=== PATIENT | male | born 1965 ===

== ENCOUNTER → 2020-05-08 08:47 | Outpatient (BNVA) | payer OTHER, SELFPAY | PROVIDERS: PCP Internal Medicine; Visit Provider Internal Medicine | DX: M96.1 Postlaminectomy syndrome, not elsewhere classified (principal) | CPT/HCPCS: 99214 ==

== ENCOUNTER → 2020-05-22 08:32 | Outpatient (BNVA) | payer OTHER, SELFPAY | PROVIDERS: PCP Internal Medicine; Visit Provider Internal Medicine | DX: M96.1 Postlaminectomy syndrome, not elsewhere classified (principal) | CPT/HCPCS: 99213 ==

== ENCOUNTER 2024-07-03 08:47 | Outpatient (AMB) | payer BC, SELFPAY ==
--- NOTE | 2024-07-03 08:51 | MHC.OFFVIS ---
Vital Signs 07/03/24 08:54 Height 5 ft 7 in Weight 234 lb BMI 36.6 BP 160/98 H Blood Pressure Location Lt brachial Position Sitting Respiration 17 Pulse 83 Pulse Source Pulse Oximeter Pulse Oximetry (%) 97 Oxygen Delivery Method Room Air Intake Visit Reasons: Lumbar disc disease Allergies No Known Allergies Allergy (Verified 07/03/24 08:56) Medication List - Last Reconciled 07/03/24 by Suellen Reed LPN aspirin (Adult Aspirin Regimen) 81 mg PO DAILY atorvastatin 80 mg PO DAILY lisinopril 20 mg PO DAILY metoprolol succinate ER mg PO nitroglycerin mg sublingual HPI Comments Details: Vicente is very pleasant 59 years old gentleman who presents in my office with complains on pain in the lower back with radiation into the stabbing sensation into the left lower extremity. He reports his pain today 03/07. He reports that his pain started 5 years ago after work accident where he tried to lift 250 lb device. He reports that because of his pain he can not sleep normally, can not do activities of daily living, he can take care of himself. He can not function normally. He is disabled individual. Cold application and weather changes aggravate his pain. Warm compresses make his pain better. In terms of tissue damage he reports his pain as stabbing, lancinating, sharp, cutting, lacerating, hot burning, scalding, searing, tight, tearing sensation. He had MRI which was performed at [facility]. He had physical therapy 2 years ago with no help. He had chiropractic manipulations also 2 years ago with aggravation of the pain. Sagar tried massage therapy. Warm compresses make his pain better. He had an MRI done at [facility] 2 years ago. Back in [facility] he received L5-S1 bilateral facet joint injections. He reported today that he never was offered spinal cord stimulator. He states that he would Sagar accept some like that. 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 He also had back surgery, he had 2 stents in the heart, and a foot surgery. He smokes half a pack of cigarettes per day he drinks alcohol 1 shot twice a week he drinks 2 cups of coffee a day he tried gummies THC approximately 10 months ago. He denied help from THC. Review of Systems Const All systems reviewed & are unremarkable except as noted in HPI and below ENT Reports Normal hearing present Neuro Reports Normal hearing present, Denies Abnormal speech present, Denies confusion and Denies Sensory deficit (Neuro) Psych Denies confusion Physical Exam Vital Signs: Last Vital Signs Pulse 83 07/03/24 08:54 Resp 17 07/03/24 08:54 BP 160/98 H 07/03/24 08:54 Pulse Ox 97 07/03/24 08:54 Oxygen Delivery Method Room Air 07/03/24 08:54 BMI result Body Mass Index 36.6 Const General: no acute distress; No confusion Orientation/consciousness: patient oriented x3 and No confusion Eyes General: appearance normal, both eyes and all related structures Pupils: Equal, round and reactive pupils present EOM: EOMs intact bilaterally Neck Neck: Yes full ROM Chest Chest palpation & inspection: normal inspection of the chest Resp Effort & Inspection: normal respiratory effort, able to speak in complete sentences, normal respiratory pattern, no audible wheezes and no cough Cardio Jugular venous distension: no JVD GI Inspection: Yes normal to inspection Back/Spine/Pelvis Other: Small scar in the projection of L5 vertebra very well-healed demonstrated in the patient's lumbar area. No redness no swelling is noted. Neuro General: patient oriented x3, gait normal and No confusion Cranial nerves: Yes CN's II-XII intact bilaterally, Yes Equal, round and reactive pupils present, Yes Normal hearing present and Yes Ability to bilaterally elevate shoulders present Speech: No Abnormal speech present Gait exam (Neuro): Normal gait present Motor exam (neuro): 5/5 motor strength present throughout Sensory Exam: No Sensory deficit (Neuro) Extrem General: No pedal edema Psych Speech and movement: Normal speech and movement present Affect: normal affect Attitude: cooperative Thought process: Normal thought process present Thought content: Normal thought content present Insight: Good insight present (Psych) Judgement: Good judgement present (Psych) Assessment & Plan Assessment & Plan (1) Postlaminectomy syndrome of lumbar region: Code(s): M96.1 - Postlaminectomy syndrome, not elsewhere classified Category: Medical (2) Chronic pain syndrome: Code(s): G89.4 - Chronic pain syndrome Category: Medical Plan I explained to the patient that I do not mind to take over his medical pain management however I explained to him that prescribing opioids eventually will lead to opioid induced hyperalgesia, opioid tolerance, possible opioid addiction. I explained to him that in the order to prevent all this side effects and complications of taking chronic opioid therapy, we perform interventional pain management including spinal cord stimulator. Patient adamantly refused spinal cord stimulator. I wanted to discuss other medications medically manage his pain. He tried gabapentin in the past he denied side effects. I offered him gabapentin escalation trial however the patient did not want me to prescribe gabapentin for him. He stated that he has ?tons of muscle relaxants ?at his household. I explained to him that the gabapentin is not muscle relaxants but he did not want to hear my explanations. He stated that only 2 pills of the oxycodone a day we will make him much better. I explained to him that this small dose of the opioid medications can be prescribed to him by primary care physician. Coding Level of Care Code New Pt Level 3 (84623) Diagnoses Postlaminectomy syndrome of lumbar region M96.1 Chronic pain syndrome G89.4
[2024-07-03 08:54] VITALS: BP 160/98; PULSE 83; RESP 17; O2SAT 97; BMI 36.6
== END 2024-07-03 09:34 | disposition home or self-care (01) ==
PROVIDERS: PCP Internal Medicine; Referring Provider Internal Medicine; Visit Provider Anesthesiology
DX: M96.1 Postlaminectomy syndrome, not elsewhere classified (principal); G89.4 Chronic pain syndrome
CPT/HCPCS: 99203

== ENCOUNTER → 2024-07-03 08:47 | Outpatient (BNVA) | payer BC, SELFPAY | PROVIDERS: PCP Internal Medicine; Referring Provider Internal Medicine; Visit Provider Anesthesiology ==